=== PATIENT | male | born 1955 ===

== ENCOUNTER → 2025-02-22 | Day surgery (SDC) | payer OTHER ==
[2025-02-20 11:04] VITALS: BP 115/76
[~2025-02-22] VITALS: Ht 170.2 cm; Wt 80.3 kg
[~2025-02-22] MED LIST: AMLODIPINE; BUPIVACAINE HCL 30 ML VIAL IJ ONE; BUPIVACAINE HCL/MPF 0.5% 30ML VIAL ONE; CEFAZOLIN SODIUM 1,000 MG VIAL IV ONE; CEFAZOLIN SODIUM 1,000 MG VIAL ONE; DESMOPRESSIN ACETATE 4 MCG/ML AMPUL IV NR; DESMOPRESSIN ACETATE 40 MCG/10 ML ML IV SCH; HEPARIN SODIUM,PORCINE 500 UNITS/5 ML VIAL IV ONE; HEPARIN SODIUM,PORCINE/PF 100 UNIT/ML SYRINGE IV ONE; LOTENSIN40 MG; METFORMIN HCL500 MG; TRAM1TAB98 PO
== END | disposition home or self-care (01) ==
LOC: ADM 02-20 10:45 → CIR.AMB 06:27
PROVIDERS: ATTEND Surgery
DX: C18.0 Malignant neoplasm of cecum (principal)
CPT/HCPCS: 36561; C1751